=== PATIENT | male | born 1975 | race Caucasian/White ===

== ENCOUNTER 2016-04-09 15:47 | Emergency (ER) | payer OTHER ==
[2016-04-09] MEDS ORDERED: METFORMIN HCL 500 MG TABLET ONE (16:45)
[2016-04-09] MEDS ORDERED: SODIUM CHLORIDE 0.9% 1,000 ML ONE (16:45)
[2016-04-09] MEDS ORDERED: INSULIN REGULAR HUMAN (DOSE) 100 UNITS/1 ML ONE (16:46)
[2016-04-09 17:21] LABS: ABSOLUTE NEUTROPHIL COUNT 7.1 K/mm3 (1.8-7.7); BASO # 0.1 K/mm3 (0.0-0.2); BASO % 0.5 % (0.2-1.0); EOS # 0.1 (0.0-0.5); EOS % 0.8 % (0.9-2.9); HEMATOCRIT 44.9 % (32.0-52.0); HEMOGLOBIN 15.5 gm/l (14.0-18.0); IMM NEUT% 0.3 % (0-1); LYMPH # 1.7 (1.0-4.8); MEAN CELL VOLUME 83.8 fl (80.0-94.0); MEAN CORPUSCULAR HEMOGLOBIN 28.9 pg (27.0-31.0); MEAN CORPUSCULAR HGB CONC 34.5 g/dl (33.0-37.0); MEAN PLATELET VOLUME 10.8 fl (7.4-10.4); MONO # 0.6 (0.0-0.8); MONO % 6.5 % (4-12); NEUT % 73.9 % (43-75); PLATELET COUNT 201 K/mm3 (130-400); RED CELL DISTRIBUTION WIDTH 11.7 % (11.5-14.5)
[2016-04-09 17:28] LABS: ALB/GLOB RATIO 1.6 (>1.0); ALBUMIN 4.4 gm/dL (3.5-5.7); CALCIUM 9.6 mg/dL (8.6-10.3)
[2016-04-09 18:06] LABS: URINE BILIRUBIN NEGATIVE (NEGATIVE); URINE BLOOD NEGATIVE (NEGATIVE); URINE GLUCOSE (UA) 3+ (NEGATIVE); URINE LEUKOCYTE ESTERASE NEGATIVE (NEGATIVE); URINE NITRITE NEGATIVE (NEGATIVE); URINE PROTEIN NEGATIVE (NEGATIVE); URINE UROBILINOGEN NORMAL (0-1 mg/dl)
[2016-04-09 18:09] LABS: URINE APPEARANCE CLEAR; URINE COLOR YELLOW
== END 2016-04-09 18:45 | disposition home or self-care (01) ==
LOC: ED 15:47
DX: E11.65 Type 2 diabetes mellitus with hyperglycemia (principal); Z79.4 Long term (current) use of insulin; Z79.84 Long term (current) use of oral hypoglycemic drugs
CPT/HCPCS: 85025; 80053; 81003; 99283 ×2; 96374; 96361; 82962 ×2; A9270; J7030; J1815